=== PATIENT | male | born 1995 | race African-American/Black ===

== ENCOUNTER 2019-12-17 08:34 | Inpatient (IN) | payer MEDICAID, OTHER ==
[~2019-12-17] VITALS: Ht 188 cm; Wt 65.8 kg
[~2019-12-17 08:34] MED LIST: ALBU6.7H11 INH; INSASP SUBCUT; LEVVL SUBCUT
[2019-12-17] MEDS ORDERED: MORPHINE SULFATE 4 MG/ML CPJ (NOT FOR IM USE) IV STA (09:44)
[2019-12-17] MEDS ORDERED: ONDANSETRON HCL 4MG/2ML INJ IV STA (09:44)
[2019-12-17] MEDS ORDERED: SODIUM CHLORIDE 0.9% 1,000 ML IV ONE (09:44)
[2019-12-17] MEDS ORDERED: INSULIN REGULAR (HUMULIN R) UD 100 UNITS/ML SYR SUBCUT ONE (09:45)
[2019-12-17 10:06] LABS: BASOPHILS % 1.2 % (0.0-2.0); EOSINOPHILS % 2.5 % (0.0-5.0); HEMATOCRIT. 43.1 % (42.0-52.0); HEMOGLOBIN. 14.4 g/dL (14.0-18.0); LYMPHOCYTES % 44.1 % (20.0-50.0); MEAN CORPUSCULAR HEMOGLOBIN 32.1 pg (28.0-32.0); MEAN CORPUSCULAR VOLUME 95.9 fL (80.0-94.0); MEAN PLATELET VOLUME 8.4 fl (7.4-10.4); MONOCYTES % 9.8 % (2.0-8.0); NEUTROPHILS % 42.4 % (40.0-76.0); PLATELET 250 x1000/uL (130-400); RED BLOOD CELL COUNT 4.49 mill/uL (4.7-6.1); RED CELL DISTRIBUTION WIDTH 13.9 % (11.6-14.6)
[2019-12-17 10:10] LABS: CHLORIDE 104 mEq/L (98-107)
[2019-12-17 10:18] LABS: BETA HYDROXYBUTYRATE 1.9 mMol/L (0.0-0.3)
[2019-12-17] MEDS ORDERED: IOHEXOL-300 100 ML BOTTLE ONE (11:33)
[2019-12-17] MEDS ORDERED: CEFTRIAXONE 1 G PREMIX 50 ML IV ONE (12:00)
[2019-12-17] MEDS ORDERED: AZITHROMYCIN 500 MG in DEXT 5% WATER 250 ML IV ONE (12:00)
[2019-12-17] MEDS ORDERED: ACETAMINOPHEN 325MG TABLET PO PRN ×2 (15:15)
[2019-12-17] MEDS ORDERED: DIPHENHYDRAMINE 50MG/ML VIAL IV PRN (15:15)
[2019-12-17] MEDS ORDERED: CLONIDINE 0.1MG TABLET PO PRN (15:15)
[2019-12-17] MEDS ORDERED: GUAIFENESIN 200MG/10ML SUGAR FREE UDC PO PRN (15:15)
[2019-12-17] MEDS ORDERED: DEXTROSE 50% WATER 50ML SYRINGE IV PRN (15:15)
[2019-12-17] MEDS ORDERED: CEFTRIAXONE 1 G PREMIX 50 ML IV SCH (15:15)
[2019-12-17 15:20] VITALS: BP 90/60
[2019-12-17 15:22] VITALS: BP 48/26
[2019-12-17 16:00] VITALS: BP 90/60
[2019-12-17] MEDS: SODIUM CHLORIDE 0.9% 1,000 ML IV SCH (16:13)
[2019-12-17] MEDS: PANTOPRAZOLE SODIUM 40 MG/VIAL IV SCH (17:17)
[2019-12-17] MEDS: BLOOD SUGAR DIAGNOSTIC STRIP TEST SCH ×2 (18:10→21:00)
[2019-12-17] MEDS: INSULIN LISPRO 100 UNITS/ML SUBCUT SCH ×2 (18:10→21:00)
[2019-12-17 20:00] VITALS: BP 135/75
[2019-12-17] MEDS: INSULIN GLARGINE UD 100 UNITS/ML SYR SUBCUT SCH (21:52)
[2019-12-18 00:05] VITALS: BP 105/64
[2019-12-18] MEDS: SODIUM CHLORIDE 0.9% 1,000 ML IV SCH ×3 (01:10→16:15)
[2019-12-18 04:00] VITALS: BP 125/84
[2019-12-18 06:36] LABS: CHLORIDE 107 mEq/L (98-107)
[2019-12-18 06:42] LABS: PHOSPHORUS 2.9 mg/dL (2.5-4.9)
[2019-12-18 06:52] LABS: BASOPHILS % 0.7 % (0.0-2.0); EOSINOPHILS % 1.8 % (0.0-5.0); HEMATOCRIT. 38.3 % (42.0-52.0); HEMOGLOBIN. 12.9 g/dL (14.0-18.0); LYMPHOCYTES % 38.8 % (20.0-50.0); MEAN CORPUSCULAR VOLUME 94.9 fL (80.0-94.0); MEAN PLATELET VOLUME 8.4 fl (7.4-10.4); NEUTROPHILS % 47.7 % (40.0-76.0); PLATELET 234 x1000/uL (130-400); RED BLOOD CELL COUNT 4.03 mill/uL (4.7-6.1); RED CELL DISTRIBUTION WIDTH 13.6 % (11.6-14.6)
[2019-12-18] MEDS: BLOOD SUGAR DIAGNOSTIC STRIP TEST SCH ×4 (07:40→21:00)
[2019-12-18 08:00] VITALS: BP 111/75
[2019-12-18] MEDS: INSULIN LISPRO 100 UNITS/ML SUBCUT SCH ×5 (08:10→23:01)
[2019-12-18] MEDS: PANTOPRAZOLE SODIUM 40 MG/VIAL IV SCH (09:19)
[2019-12-18] MEDS ORDERED: POTASSIUM CHLORIDE 20MEQ TABLET SR PO NR ×2 (10:00→18:00)
[2019-12-18] MEDS ORDERED: MAGNESIUM 4 G PREMIX 100 ML IV NR (11:30)
[2019-12-18 12:00] VITALS: BP 131/67
[2019-12-18] MEDS ORDERED: CEFTRIAXONE 1,000 MG in DEXTROSE 5% WATER 50 ML IV SCH (12:00)
[2019-12-18] MEDS ORDERED: AZITHROMYCIN 500 MG in DEXT 5% WATER 250 ML IV SCH (13:00)
[2019-12-18] MEDS: ONDANSETRON HCL 4MG/2ML INJ IV PRN (14:31)
[2019-12-18 16:00] VITALS: BP 114/67
[2019-12-18 16:01] LABS: CLARITY URINE CLEAR (CLEAR); COLOR URINE DARK YELLOW (YELLOW); KETONES URINE 3+ (NEGATIVE); LEUKOCYTE ESTERASE URINE TRACE (NEGATIVE); NITRITE URINE NEGATIVE (NEGATIVE); OCCULT BLOOD URINE NEGATIVE (NEGATIVE); PH URINE 5.5 (4.5-8.0); PROTEIN URINE TRACE (NEGATIVE); SPECIFIC GRAVITY URINE 1.044 (1.005-1.030)
[2019-12-18] MEDS ORDERED: POTASSIUM CHLORIDE INJ 40 MEQ in DEXT 5% WATER 250 ML IV SCH (17:00)
[2019-12-18 20:00] VITALS: BP 136/80
[2019-12-18] MEDS: INSULIN GLARGINE UD 100 UNITS/ML SYR SUBCUT SCH (23:01)
[2019-12-19] VITALS: BP 131/84
[2019-12-19 04:00] VITALS: BP 140/86
[2019-12-19] MEDS: SODIUM CHLORIDE 0.9% 1,000 ML IV SCH ×2 (04:35→17:55)
[2019-12-19] MEDS: BLOOD SUGAR DIAGNOSTIC STRIP TEST SCH ×4 (05:57→20:21)
[2019-12-19 06:26] LABS: CHLORIDE 101 mEq/L (98-107)
[2019-12-19 06:34] LABS: PHOSPHORUS 3.1 mg/dL (2.5-4.9)
[2019-12-19 08:00] VITALS: BP 112/75
[2019-12-19] MEDS: PANTOPRAZOLE SODIUM 40 MG/VIAL IV SCH (08:21)
[2019-12-19] MEDS: INSULIN LISPRO 100 UNITS/ML SUBCUT SCH ×4 (08:26→20:34)
[2019-12-19] MEDS ORDERED: MAGNESIUM 4 G PREMIX 100 ML IV SCH (10:00)
[2019-12-19] MEDS: ONDANSETRON HCL 4MG/2ML INJ IV PRN (11:28)
[2019-12-19 11:38] VITALS: BP 122/73
[2019-12-19 16:00] VITALS: BP 127/81
[2019-12-19 20:00] VITALS: BP 126/80
[2019-12-19] MEDS: ZOLPIDEM TARTRATE 5MG TABLET PO PRN (20:24)
[2019-12-19] MEDS: INSULIN GLARGINE UD 100 UNITS/ML SYR SUBCUT SCH (21:37)
[2019-12-19] MEDS ORDERED: INSULIN GLARGINE UD 100 UNITS/ML SYR SUBCUT SCH (22:00)
[2019-12-20] VITALS: BP 131/75
[2019-12-20 03:57] VITALS: BP 126/66
[2019-12-20] MEDS: SODIUM CHLORIDE 0.9% 1,000 ML IV SCH ×2 (06:05→16:42)
[2019-12-20] MEDS: INSULIN LISPRO 100 UNITS/ML SUBCUT SCH ×4 (06:57→22:25)
[2019-12-20] MEDS: BLOOD SUGAR DIAGNOSTIC STRIP TEST SCH ×4 (06:57→21:00)
[2019-12-20 07:19] LABS: CHLORIDE 105 mEq/L (98-107)
[2019-12-20 07:27] LABS: PHOSPHORUS 3.2 mg/dL (2.5-4.9)
[2019-12-20 08:00] VITALS: BP 132/74
[2019-12-20] MEDS: FAMOTIDINE 20MG/2ML VIAL IV SCH ×2 (08:39→22:04)
[2019-12-20] MEDS: ONDANSETRON HCL 4MG/2ML INJ IV PRN (10:28)
[2019-12-20] MEDS ORDERED: POTASSIUM CHLORIDE 20MEQ TABLET SR PO NR (10:30)
[2019-12-20] MEDS ORDERED: MAGNESIUM 2 G PREMIX 50 ML IV NR (12:00)
[2019-12-20 12:25] VITALS: BP 146/84
[2019-12-20] MEDS: ZOLPIDEM TARTRATE 5MG TABLET PO PRN (13:03)
[2019-12-20 13:11] LABS: HIV SCREEN 4G Non Reactive (Non Reactive)
[2019-12-20] MEDS ORDERED: POTASSIUM CHLORIDE INJ 40 MEQ in DEXT 5% WATER 250 ML IV ONE (15:15)
[2019-12-20 16:09] VITALS: BP 119/78
[2019-12-20] MEDS ORDERED: POTASSIUM CHLORIDE INJ 40 MEQ in DEXT 5% WATER 250 ML IV NR (17:00)
[2019-12-20 20:00] VITALS: BP 129/60
[2019-12-20] MEDS: INSULIN GLARGINE UD 100 UNITS/ML SYR SUBCUT SCH (22:25)
[2019-12-21] VITALS: BP 128/60
[2019-12-21 04:00] VITALS: BP 137/76
[2019-12-21] MEDS: SODIUM CHLORIDE 0.9% 1,000 ML IV SCH (05:28)
[2019-12-21] MEDS: BLOOD SUGAR DIAGNOSTIC STRIP TEST SCH (06:29)
[2019-12-21] MEDS: INSULIN LISPRO 100 UNITS/ML SUBCUT SCH (06:29)
[2019-12-21 07:54] LABS: CHLORIDE 103 mEq/L (98-107)
[2019-12-21 08:00] VITALS: BP 116/88
[2019-12-21] MEDS: FAMOTIDINE 20MG/2ML VIAL IV SCH (08:33)
[2019-12-21] MEDS ORDERED: POTASSIUM CHLORIDE 20MEQ TABLET SR PO NR (09:45)
[2019-12-21] MEDS ORDERED: MAGNESIUM 1 G PREMIX 100 ML IV NR (11:00)
[2019-12-21 12:00] VITALS: BP 135/80
[2019-12-21 12:43] VITALS: BP 116/88
== END 2019-12-21 12:55 | disposition home or self-care (01) | DRG 249 ==
LOC: ER 08:34 → 7WST 12:31 → ENRESERV 13:47 → 7WST 15:12 → UNDOADMIN 15:12 → 6WST 12-18 12:30
PROVIDERS: ADMIT Internal Medicine; ATTEND Internal Medicine
DX: K52.9 Noninfective gastroenteritis and colitis, unspecified (principal); E10.65 Type 1 diabetes mellitus with hyperglycemia; F12.90 Cannabis use, unspecified, uncomplicated; E87.6 Hypokalemia; E83.42 Hypomagnesemia; Z79.4 Long term (current) use of insulin; Z79.899 Other long term (current) drug therapy; Z03.818 Encounter for observation for suspected exposure to other biological agents ruled out
CPT/HCPCS: 36415; 71045; 74177; 80048; 80053; 81003; 82010; 82962; 83036; 83605; 83735; 83930; 84100; 85025; 87389; 87635; 93005; 99285; C9113; J0456; J0696; J1200; J1815; J2270; J2405; J3475; J3480; J3490; J7030; J7060; Q9967

== ENCOUNTER 2020-03-10 01:10 | Emergency (ER) | payer MEDICAID ==
[~2020-03-10] VITALS: Ht 188 cm; Wt 77.0 kg
[2020-03-10 01:53] VITALS: BP 111/81
== END 2020-03-10 01:54 | disposition home or self-care (01) ==
LOC: ER 01:10
DX: E11.9 Type 2 diabetes mellitus without complications (principal); Z79.4 Long term (current) use of insulin
CPT/HCPCS: 82962; 99282

== ENCOUNTER 2020-03-11 07:48 | Emergency (ER) | payer MEDICAID ==
[~2020-03-11] VITALS: Ht 172.7 cm; Wt 78.0 kg
[2020-03-11] MEDS ORDERED: MORPHINE SULFATE 4 MG/ML CPJ (NOT FOR IM USE) IV STA (08:08)
[2020-03-11] MEDS ORDERED: ONDANSETRON HCL 4MG/2ML INJ IV STA (08:08)
[2020-03-11] MEDS ORDERED: SODIUM CHLORIDE 0.9% 1,000 ML IV ONE (08:15)
[2020-03-11 08:36] LABS: BASOPHILS % 1.3 % (0.0-2.0); EOSINOPHILS % 0.4 % (0.0-5.0); HEMATOCRIT. 34.8 % (42.0-52.0); HEMOGLOBIN. 11.7 g/dL (14.0-18.0); LYMPHOCYTES % 46.8 % (20.0-50.0); MEAN CORPUSCULAR HEMOGLOBIN 32.3 pg (28.0-32.0); MEAN CORPUSCULAR VOLUME 96.3 fL (80.0-94.0); MEAN PLATELET VOLUME 7.5 fl (7.4-10.4); MONOCYTES % 8.4 % (2.0-8.0); NEUTROPHILS % 43.1 % (40.0-76.0); PLATELET 225 x1000/uL (130-400); RED BLOOD CELL COUNT 3.62 mill/uL (4.7-6.1); RED CELL DISTRIBUTION WIDTH 13.5 % (11.6-14.6)
[2020-03-11 08:44] LABS: CHLORIDE 104 mEq/L (98-107)
[2020-03-11 08:45] LABS: PROTHROMBIN TIME 10.3 sec (9.6-11.0)
[2020-03-11 08:56] LABS: CREATINE KINASE 86 IU/L (39-308)
[2020-03-11 08:59] LABS: CREATINE KINASE MB FRACTION < 1.0 ng/mL (0.5-3.6)
[2020-03-11] MEDS ORDERED: IOHEXOL-300 100 ML BOTTLE ONE (09:26)
[2020-03-11] MEDS ORDERED: KETOROLAC 30MG/ML VIAL IV ONE (09:45)
[2020-03-11 11:01] LABS: CLARITY URINE CLEAR (CLEAR); COLOR URINE YELLOW (YELLOW); KETONES URINE NEGATIVE (NEGATIVE); LEUKOCYTE ESTERASE URINE NEGATIVE (NEGATIVE); NITRITE URINE NEGATIVE (NEGATIVE); OCCULT BLOOD URINE NEGATIVE (NEGATIVE); PROTEIN URINE NEGATIVE (NEGATIVE); SPECIFIC GRAVITY URINE 1.077 (1.005-1.030); UROBILINOGEN URINE 0.2 E.U./dL (0.2-1.0)
[2020-03-11] MEDS ORDERED: LORAZEPAM 2MG/ML CPJ IV ONE (14:00)
[2020-03-11] MEDS ORDERED: OLANZAPINE 10 MG/VIAL IM ONE (14:00)
[2020-03-11 14:10] LABS: ETHANOL BLOOD < 10 mg/dL
[2020-03-11 14:59] LABS: *AMPHETAMINES SCREEN URINE NEGATIVE (NEGATIVE); *BARBITURATES SCREEN URINE NEGATIVE (NEGATIVE); *BENZODIAZEPINES SCREEN URINE NEGATIVE (NEGATIVE); *COCAINE SCREEN URINE NEGATIVE (NEGATIVE); METHADONE URINE SCREEN NEGATIVE (NEGATIVE); OPIATES URINE SCREEN PRESUMTIVE POSITIVE (NEGATIVE)
[2020-03-11 15:00] LABS: CANNABINOID URINE SCREEN PRESUMTIVE POSITIVE (NEGATIVE); PHENCYCLIDINE URINE SCREEN NEGATIVE (NEGATIVE)
[2020-03-12] MEDS ORDERED: OLANZAPINE 10 MG/VIAL IM ONE (01:30)
[2020-03-12] MEDS ORDERED: HALOPERIDOL LACTATE 5MG/ML VIAL IM ONE (01:30)
[2020-03-12] MEDS ORDERED: ACETAMINOPHEN 325MG TABLET PO ONE (12:45)
[2020-03-12] MEDS ORDERED: DEXTROSE 50% WATER 50ML SYRINGE IV PRN (13:30)
[2020-03-12] MEDS: BLOOD SUGAR DIAGNOSTIC STRIP TEST SCH ×2 (13:39→17:39)
[2020-03-12] MEDS: INSULIN LISPRO 100 UNITS/ML SUBCUT SCH ×2 (13:55→18:08)
[2020-03-12 17:42] VITALS: BP 102/56
== END 2020-03-12 19:30 | disposition left against medical advice (07) ==
LOC: ER 07:56
DX: M54.2 Cervicalgia (principal); Z79.899 Other long term (current) drug therapy; M54.9 Dorsalgia, unspecified; E11.9 Type 2 diabetes mellitus without complications; Z20.828 Contact with and (suspected) exposure to other viral communicable diseases
CPT/HCPCS: 36415; 70450; 71045; 71260; 72125; 74177; 80053; 80305; 80307; 80320; 80329; 81003; 82550; 82553; 82962; 83690; 84484; 85025; 85610; 87086; 87635; 93005; 99285; J1630; J1815; J2060; J2270; J2405; J3490; J7030; Q9967; G0480